=== PATIENT | male | born 1980 | race Caucasian/White ===

== ENCOUNTER 2018-03-29 18:36 | Emergency (ER) | payer BC ==
[~2018-03-29] VITALS: Ht 172.7 cm; Wt 65.3 kg
[2018-03-29 18:39] VITALS: BP 143/89; TEMP 36.8; Ht 172.7 cm; Wt 65.3 kg
--- NOTE | 2018-03-29 19:26 | DIAGNOSTIC IMAGING REPORT ---
L-SPINE MIN 4 VIEWS ROUTINE HISTORY: 38 years-old Male low back pain acute low back pain COMPARISON: None available TECHNIQUE: 5 views of the lumbar spine FINDINGS: 5 nonrib-bearing lumbar type vertebral segments are present. No spondylolysis or spondylolisthesis. No acute fracture, subluxation or significant degenerative changes. Cholecystectomy clips are noted. Surgical suture material about the right midabdomen. Moderate formed stool throughout the colon. No definite urolith. Probable phlebolith of the right hemipelvis. IMPRESSION: 1. No acute fracture or subluxation. 2. Suggested constipation. The above report was generated using voice recognition software. It may contain grammatical, syntax or spelling errors. Electronically signed by: Mc Alexander M.D. 03/29/2018 7:25 PM Dictated Date/Time: 03/29/2018 7:23 PM
[2018-03-29] MEDS ORDERED: IBUPROFEN 600 MG TAB PO STA (19:37)
[2018-03-29] MEDS ORDERED: IBUP-1427 PO (19:42)
[2018-03-29] MEDS ORDERED: CYCL10TA6 PO (19:42)
--- NOTE | 2018-03-29 19:43 | EMERGENCY ROOM VISIT NOTE ---
ED Visit Note First contact with patient: 18:46 CHIEF COMPLAINT: Low back pain HISTORY OF PRESENT ILLNESS: This 38-year-old male patient presents to the emergency department, ambulatory, complaining of pain in the low back which began on Thursday. The patient states he was working on his car when he stood up and felt a pull or tear in the low back. He states on Thursday he was experiencing the pain but used a TENS unit with relief. Today, the patient went to work and states when he got home he was working on his truck again. The patient states he felt a pull again and has been having difficulty standing straight. The patient reports shooting pain across the low back and down the left leg and into the buttocks. The pain was gradual in onset, is now constant and worse with movement. The patient notes the pain as sharp and a 5/10. The patient has taken no medications for relief of the pain. The patient denies any loss of control of their bowel or bladder functions. There has been no leg numbness or weakness, and no change in sensation. No nausea or vomiting or abdominal pain. No chest pain or shortness of breath. The patient has not had prior back injuries. No dysuria or increased urinary frequency. REVIEW OF SYSTEMS: A 10 system review of systems was performed with positives and pertinent negatives listed in the history of present illness. All other systems were reviewed and are negative. ALLERGIES: None MEDICATIONS: None PMH: None SOCIAL HISTORY: The patient lives locally with family. He denies drug, alcohol, tobacco use per PHYSICAL EXAM: VITALS: Vitals are noted on the nurse's note and reviewed by myself. Vital signs stable. GENERAL: This is a 38-year-old white male, in no acute distress, nondiaphoretic , well-developed well-nourished. SKIN: The skin was without rashes, erythema, edema, or bruising. Capillary refill less than 2 seconds. NECK: Supple without nuchal rigidity. No cervical spine tenderness. No paraspinous muscle tenderness. HEART: Regular rate and rhythm without murmurs gallops or rubs. LUNGS: Clear to auscultation bilaterally without wheezes, rales or rhonchi. ABDOMEN: Positive bowel sounds x 4. Normal tympanic percussion. Soft, nontender, without masses or organomegaly. Concepcion sign negative. MUSCULOSKELETAL: No muscle atrophy, erythema, or edema noted of the back. There is no tenderness over the lumbar spinous processes. There is tenderness over the paraspinous muscles bilaterally. There is tenderness over the bilateral SI joints, left greater than right. There is no tenderness over the thoracic spine or paraspinous muscles. There are muscle spasms present. The patient is slow to move around with maximum tenderness with position changes. Negative bilateral straight leg raise test. NEURO: Patient was alert and oriented to person place and time. Normal sensation to light and sharp touch. Deep tendon reflexes 2+ in the lower extremities. Dorsalis pedis pulse 2+ bilaterally. Strength 5/5 and equal in the bilateral lower extremities. RADIOLOGY: L-SPINE MIN 4 VIEWS ROUTINE HISTORY: 38 years-old Male low back pain acute low back pain COMPARISON: None available TECHNIQUE: 5 views of the lumbar spine FINDINGS: 5 nonrib-bearing lumbar type vertebral segments are present. No spondylolysis or spondylolisthesis. No acute fracture, subluxation or significant degenerative changes. Cholecystectomy clips are noted. Surgical suture material about the right midabdomen. Moderate formed stool throughout the colon. No definite urolith. Probable phlebolith of the right hemipelvis. IMPRESSION: 1. No acute fracture or subluxation. 2. Suggested constipation. The above report was generated using voice recognition software. It may contain grammatical, syntax or spelling errors. Electronically signed by: Mc Alexander M.D. 03/29/2018 7:25 PM Dictated Date/Time: 03/29/2018 7:23 PM EMERGENCY DEPARTMENT COURSE: The patient was seen and evaluated as above. X- ray performed reviewed by myself and radiologist as above. The patient was given ibuprofen for pain and inflammation. I did offer Toradol and the patient declined. He was given a home pack for Flexeril, as he states he has to drive home tonight. He will be treated with scheduled anti-inflammatories and muscle relaxers with close follow-up outpatient by the primary care provider later this week. The patient verbalized agreement and understanding of the treatment plan. Discharge instructions reviewed, patient was discharged home in good condition. I attest that I have personally reviewed the patient's current medication list. Patient was found to have normal blood pressure on screening and does not require follow-up. Etiologies such as lumbago, sciatica, cauda equina, epidural abscess, osteomyelitis, fracture, aortic disease, metastatic disease, infection, renal colic, gastrointestinal, as well as others were entertained. DIAGNOSIS: Lumbar strain The chart was completed utilizing [employer] voice recognition software. Grammatical errors, random word insertions, pronoun errors, and incomplete sentences are an occasional consequence of this system due to software limitations, ambient noise, and hardware issues. Any formal questions or concerns about the content, text, or information contained within the body of this dictation should be directly addressed to the provider for clarification. Current/Historical Medications Scheduled Cyclobenzaprine Hcl (Flexeril), 10 MG PO TID Ibuprofen Tab (Motrin), 600 MG PO QID Miscellaneous Medications None (Patient States No Home Meds) Allergies Coded Allergies: No Known Allergies (Unverified , 01/23/10) Vital Signs Date Time Temp Pulse Resp B/P (MAP) Pulse Ox O2 Delivery O2 Flow Rate FiO2 03/29/18 18:39 36.8 83 17 143/89 99 Room Air Departure Information Impression Primary Impression: Strain of lumbar region Dispostion Home / Self-Care Condition GOOD Prescriptions Ibuprofen Tab (MOTRIN) 600 Mg Tab 600 MG PO QID, #100 TAB Prov: Cindi Estrada PA-C 03/29/18 Cyclobenzaprine Hcl (FLEXERIL) 10 Mg Tab 10 MG PO TID, #15 TAB Prov: Cindi Estrada PA-C 03/29/18 Referrals Alvin Guthrie D.O. (PCP) Patient Instructions ED Sprain Strain Lumbar, My [facility] Additional Instructions You have been treated in the Emergency Department for Back Pain. You have been prescribed Flexeril (cyclobenzaprine) 1 tabs orally, three times per day. Do NOT exceed 30 mg (3 tabs) per day. Take your first dose at bedtime as it can make you drowsy. Always take all medications as prescribed. For pain control, you can use the following [id number] medicines (if >12 yo): Ibuprofen(Motrin, Advil) may be used for fever or pain. Use 600mg every six hours as needed. Take with food. Avoid using more than 2400mg in a 24 hour period. Do not use 2400mg per day for more than three consecutive days without physician direction. Prolonged inappropriate use can lead to stomach upset or ulcers. (AND/OR) Acetaminophen(Tylenol) may be used for fever or pain. Use 1000mg every six hours as needed. Avoid using more than 3000mg in a 24 hour period. If this is an acute injury, ice can be applied to the area of pain for the first 3 days to help decrease pain and inflammation. After the first 3 days, a heating pad can be used over the area for continued soothing relief. You should schedule a follow-up appointment in 2-3 days with your Primary Care Provider for further evaluation and treatment of your back pain. Return to the Emergency Department if your current symptoms worsen despite treatment course outlined above, or if you develop any of the following symptoms : intractable pain despite aforementioned treatment course, loss of control of your bowel or bladder, numbness or tingling in your groin, or development of a fever. Problem Qualifiers Primary Impression: Strain of lumbar region Encounter type: initial encounter Qualified Codes: S39.012A - Strain of muscle, fascia and tendon of lower back, initial encounter
[2018-03-29] MEDS ORDERED: FLEXERIL HOME PACK 10 MG VIAL PO STA (19:53)
[2018-03-29 20:03] VITALS: PULSE 82; O2SAT 98
== END 2018-03-29 20:03 | disposition home or self-care (01) ==
LOC: C.EDB 18:38 → C.EDD 20:03
DX: S39.012A Strain of muscle, fascia and tendon of lower back, initial encounter (principal); X58.XXXA Exposure to other specified factors, initial encounter